=== PATIENT | female | born 1960 | race Caucasian/White ===

== ENCOUNTER → 2017-03-15 | Outpatient (CLI) | payer SELFPAY | END | disposition home or self-care (01) | LOC: LABPAT 09:58 | PROVIDERS: ATTEND Surgery | DX: Z01.818 Encounter for other preprocedural examination (principal); Z01.812 Encounter for preprocedural laboratory examination | CPT/HCPCS: 36415; 84132; 93005 ==

== ENCOUNTER 2020-10-01 09:17 | Emergency (ER) | payer MEDICAID ==
[2020-10-01 09:23] VITALS: BP 130/64; PULSE 71; RESP 18; TEMP 98.2
--- NOTE | 2020-10-01 09:49 | ED ---
Lower Extremity Injury HPI - General Chief Complaint: Extremity Injury, Lower Stated Complaint: Recheck/Abnormal Lab Time Seen by Provider: 10/01/20 09:26 Source: patient, RN notes reviewed Mode of arrival: ambulatory Limitations: no limitations - History of Present Illness Initial Comments: 59-year-old female presents emergency from chief complaint left leg pain and swelling. Patient was sent by PCP Dr. Bradshaw for rule out DVT. They attempted to outpatient ultrasound but was unable to get insurance approval. Patient states that she has no history DVT no history of PE no short breath or chest pain. She did have a fall 3 weeks ago though she states the bruising and swelling from that. She states her legs are always swollen but she still has some soreness to her left leg. - Related Data Home Medications Medication Instructions Recorded Confirmed Calcium Carbonate [Tums] 1 - 3 tab PO TID PRN 03/14/17 03/14/17 Lisinopril-Hctz 20-12.5 mg 1 tab PO DAILY 03/14/17 03/14/17 [Zestoretic 20-12.5] Allergies Allergy/AdvReac Type Severity Reaction Status Date / Time bee venom protein (honey bee) Allergy Unknown Verified 10/01/20 09:23 Childhood Review of Systems ROS Statement: Those systems with pertinent positive or pertinent negative responses have been documented in the HPI. ROS Other: All systems not noted in ROS Statement are negative. Past Medical History Past Medical History: GERD/Reflux, Hypertension Additional Past Medical History / Comment(s): incision hernia,bowel obstructions,varicose veins,PVD left leg History of Any Multi-Drug Resistant Organisms: None Reported Past Surgical History: Section, Cholecystectomy, Hernia Repair Additional Past Surgical History / Comment(s): 3 hernia repairs Past Anesthesia/Blood Transfusion Reactions: No Reported Reaction, Motion Sickness Additional Past Anesthesia/Blood Transfusion Reaction / Comment(s): no hx blood transfusion Past Psychological History: No Psychological Hx Reported Smoking Status: Never smoker Past Alcohol Use History: None Reported Past Drug Use History: None Reported - Past Family History Mother Family Medical History: Deep Vein Thrombosis (DVT) Father Family Medical History: Cancer General Exam Limitations: no limitations General appearance: alert, in no apparent distress Head exam: Present: atraumatic, normocephalic, normal inspection Respiratory exam: Present: normal lung sounds bilaterally. Absent: respiratory distress, wheezes, rales, rhonchi, stridor Cardiovascular Exam: Present: regular rate, normal rhythm, normal heart sounds. Absent: systolic murmur, diastolic murmur, rubs, gallop, clicks Extremities exam: Present: other (Left leg pain with palpation, pulses equal bilaterally, bilateral leg swelling.) Course Vital Signs 10/01/20 09:18 Temperature 98.2 F Pulse Rate 71 Respiratory 18 Rate Blood Pressure 130/64 O2 Sat by Pulse 98 Oximetry Medical Decision Making - Medical Decision Making Ultrasound is negative for acute DVT. Patient discharged in stable condition return parameters were discussed. Disposition Clinical Impression: Left leg pain, Leg edema Disposition: HOME SELF-CARE Condition: Stable Instructions (If sedation given, give patient instructions): Leg Pain (ED) Additional Instructions: Please return to the Emergency Department if symptoms worsen or any other concerns. Is patient prescribed a controlled substance at d/c from ED?: No Referrals: Quentin Bradshaw MD [Primary Care Provider] - 1-2 days Time of Disposition: 10:10
--- NOTE | 2020-10-01 10:04 | US ---
EXAMINATION TYPE: US venous doppler duplex LE LT DATE OF EXAM: 10/01/2020 9:41 AM COMPARISON: NONE CLINICAL HISTORY: Left leg pain. swelling SIDE PERFORMED: Left TECHNIQUE: The lower extremity deep venous system is examined utilizing real time linear array sonog augusto with graded compression, doppler sonography and color-flow sonography. VESSELS IMAGED: Common Femoral Vein Deep Femoral Vein Greater Saphenous Vein * Femoral Vein Popliteal Vein Small Saphenous Vein * Proximal Calf Veins (* superficial vessels) Left Leg: Negative for DVT Grayscale, color doppler, spectral doppler imaging performed of the deep veins of the left lower extr emity. There is normal flow, compressibility, vascular waveforms. IMPRESSION: No ultrasound evidence for acute DVT in the left lower extremity.
== END 2020-10-01 10:49 | disposition home or self-care (01) ==
LOC: EC 09:17
DX: M79.605 Pain in left leg (principal); R60.0 Localized edema; I10 Essential (primary) hypertension; Z79.899 Other long term (current) drug therapy; Z91.030 Bee allergy status; W19.XXXA Unspecified fall, initial encounter; Y92.89 Other specified places as the place of occurrence of the external cause; Y99.0 Civilian activity done for income or pay
CPT/HCPCS: 99283

== ENCOUNTER → 2020-11-08 | Outpatient (CLI) | payer MEDICAID ==
--- NOTE | 2020-11-08 10:26 | US ---
EXAMINATION TYPE: US carotid duplex BILAT DATE OF EXAM: 11/08/2020 COMPARISON: NONE CLINICAL HISTORY: R09.89 [place] CAROTID BRUIT. EXAM MEASUREMENTS: RIGHT: Peak Systolic Velocity (PSV) cm/sec ----- Right CCA: 119.2 ----- Right ICA: 107.6 ----- Right ECA: 122.1 ICA/CCA ratio: 0.9 RIGHT: End Diastole cm/sec ----- Right CCA: 45.1 ----- Right ICA: 49.4 ----- Right ECA: 33.3 LEFT: Peak Systolic Velocity (PSV) cm/sec ----- Left CCA: 117.3 ----- Left ICA: 135.0 ----- Left ECA: 94.0 ICA/CCA ratio: 1.2 LEFT: End Diastole cm/sec ----- Left CCA: 41.3 ----- Left ICA: 62.3 ----- Left ECA: 22.8 VERTEBRALS (direction of flow): Right Vertebral: Antegrade Left Vertebral: Antegrade Rhythm: Normal Mild atherosclerotic changes. No calcified plaque. Tortuous left ICA Incidental finding of multiple bilateral thyroid nodules. IMPRESSION: 1. Mild narrowing of the left internal carotid artery estimated between 50 and 69%. Correlate with th e patient's symptoms. Criteria for Assigning % of Stenosis / Diameter reduction (Estimation based on the indirect measurements of the internal carotid artery velocities (ICA PSV). 1. Normal (no stenosis)=ICA PSV < 125 cm/s: ratio < 2.0: ICA EDV<40 cm/s. 2. Less than 50% stenosis=ICA PSV < 125 cm/s: ratio < 2.0: ICA EDV<40 cm/s. 3. 50 to 69% stenosis=ICA PSV of 125 to 230 cm/s: ration 2.0 ? 4.0: ICA EDV 40-100 cm/s. 4. Greater than 70% stenosis to near occlusion= ICA PSV > 230 cm/s: ratio > 4.0: ICA EDV > 100 cm/s. 5. Near occlusion= ICA PSV velocities may be low or undetectable: variable ratio and ICA EDV. 6. Total occlusion=unable to detect flow.
== END | disposition home or self-care (01) ==
LOC: RADUSWWP 09:42
PROVIDERS: ATTEND Family Medicine
DX: I65.22 Occlusion and stenosis of left carotid artery (principal)
CPT/HCPCS: 93880

== ENCOUNTER → 2022-01-24 | Outpatient (CLI) | payer MEDICAID ==
--- NOTE | 2022-01-24 09:31 | CT ---
EXAMINATION TYPE: CT abdomen pelvis wo con DATE OF EXAM: 01/24/2022 HISTORY: Ventral wall hernia. CT DLP: 1356.8 mGycm. Automated Exposure Control for Dose Reduction was Utilized. TECHNIQUE: CT scan of the abdomen and pelvis is performed with oral but without IV contrast. COMPARISON: NONE FINDINGS: Within the limitations of a non-contrast study, the following observations are made. LUNG BASES: No significant abnormality is appreciated. LIVER/GB: Cholecystectomy clips are present. Liver is diffusely low dense consistent with fatty infil tration. PANCREAS: No significant abnormality is seen. SPLEEN: No significant abnormality is seen. ADRENALS: No significant abnormality is seen. KIDNEYS: No renal stones or hydronephrosis is seen bilaterally. BOWEL: Moderate-sized hiatal hernia is seen. Contrast is present suggesting esophageal dysmotility or gastroesophageal reflux. Oral contrast reaches level of the proximal left colon. No suspicious small or large bowel dilatation. No obstruction at the hernia noted. GENITAL ORGANS: Lobulated contour to the uterus reflecting fibroid disease with a single small calcif ied fibroid is noted. LYMPH NODES: No greater than 1cm abdominal or pelvic lymph nodes are appreciated. OSSEOUS STRUCTURES: Bridging osteophytes in the thoracic spine are seen. Prominent facet arthropathy throughout the lumbar spine is seen. Moderate axial joint space loss in both hips. OTHER: There is vertical oriented scar along the midline of the anterior abdominal wall. There is luc tral wall hernia containing fat and small bowel loop with narrow neck measuring 1.3 cm axial image 55 . IMPRESSION: Confirmation of narrow neck ventral wall hernia containing fat and small bowel loops keiko g the vertical scar from prior surgery. No bowel obstruction.
== END | disposition home or self-care (01) ==
LOC: RADCTMAIN 07:10
PROVIDERS: ATTEND Surgery
DX: K43.9 Ventral hernia without obstruction or gangrene (principal)
CPT/HCPCS: 74176

== ENCOUNTER 2022-07-04 13:47 | Emergency (ER) | payer MEDICAID ==
[2022-07-04] MEDS ORDERED: MECLIZINE 12.5 MG TAB PO STA (14:05)
[2022-07-04] MEDS ORDERED: METOCLOPRAMIDE 10 MG TAB PO STA (14:05)
--- NOTE | 2022-07-04 14:08 | ED ---
General Adult HPI - General Chief complaint: Dizziness Stated complaint: dizziness Time Seen by Provider: 07/04/22 13:55 Source: patient, RN notes reviewed Mode of arrival: ambulatory Limitations: no limitations - History of Present Illness Initial comments: Patient is a pleasant 61-year-old female presenting to the emergency department with concerns with dizziness. Onset of symptoms was last 2-3 days. Symptoms are positional. Symptoms are very mild at this time. Patient does find certain positions, usually upright position make symptoms worse. Patient states when symptoms get very bad she gets mildly nauseated. No weakness. No confusion. No difficulty with ambulation. No speech problems. Patient did have a fall around 3 weeks ago and did strike her head however did not have any symptoms until just the past couple days - Related Data Home Medications Medication Instructions Recorded Confirmed Calcium Carbonate [Tums] 1 - 3 tab PO TID PRN 03/14/17 03/14/17 Lisinopril-Hctz 20-12.5 mg 1 tab PO DAILY 03/14/17 03/14/17 [Zestoretic 20-12.5] Previous Rx's Medication Instructions Recorded Meclizine [Antivert] 25 mg PO TID PRN #12 tab 07/04/22 Metoclopramide HCl [Reglan] 10 mg PO Q6HR PRN #15 tablet 07/04/22 Allergies Allergy/AdvReac Type Severity Reaction Status Date / Time bee venom protein (honey bee) Allergy Unknown Verified 07/04/22 13:49 Childhood Review of Systems ROS Statement: Those systems with pertinent positive or pertinent negative responses have been documented in the HPI. ROS Other: All systems not noted in ROS Statement are negative. Constitutional: Denies: fever Eyes: Denies: eye pain ENT: Denies: ear pain Respiratory: Denies: cough Cardiovascular: Denies: chest pain Neurological: Reports: as per HPI, vertigo. Denies: headache, weakness, numbness, paresthesias, confusion, abnormal gait Past Medical History Past Medical History: GERD/Reflux, Hypertension Additional Past Medical History / Comment(s): incision hernia,bowel obstructions,varicose veins,PVD left leg History of Any Multi-Drug Resistant Organisms: None Reported Past Surgical History: Section, Cholecystectomy, Hernia Repair Additional Past Surgical History / Comment(s): 3 hernia repairs Past Anesthesia/Blood Transfusion Reactions: No Reported Reaction, Motion Sickness Additional Past Anesthesia/Blood Transfusion Reaction / Comment(s): no hx blood transfusion Past Psychological History: No Psychological Hx Reported Smoking Status: Never smoker Past Alcohol Use History: None Reported Past Drug Use History: None Reported - Past Family History Mother Family Medical History: Deep Vein Thrombosis (DVT) Father Family Medical History: Cancer General Exam Limitations: no limitations General appearance: alert, in no apparent distress Head exam: Present: atraumatic, normocephalic Eye exam: Present: normal appearance, PERRL, EOMI ENT exam: Present: normal oropharynx, TM's normal bilaterally Neck exam: Present: normal inspection. Absent: tenderness Respiratory exam: Present: normal lung sounds bilaterally Cardiovascular Exam: Present: regular rate, normal rhythm GI/Abdominal exam: Present: soft. Absent: tenderness Extremities exam: Present: normal inspection, full ROM Neurological exam: Present: alert, oriented X3, CN II-XII intact. Absent: motor sensory deficit Expanded Neurological exam: Present: protecting the airway Speech: Present: fluid speech Cranial nerves: EOM's Intact: Normal, Facial Sensation: Normal Sensory exam: Upper Extremity Light Touch: Normal, Lower Extremity Light Touch: Normal Motor strength exam: RUE: 5, LUE: 5, RLE: 5, LLE: 5 Eye Response: (4) open spontaneously Motor Response: (6) obeys commands Verbal Response: (5) oriented Psychiatric exam: Present: normal affect, normal mood Skin exam: Present: normal color Course Vital Signs 07/04/22 13:49 Temperature 97.8 F Pulse Rate 77 Respiratory 18 Rate Blood Pressure 164/80 O2 Sat by Pulse 98 Oximetry Medical Decision Making - Medical Decision Making Was pt. sent in by a medical professional or institution (, PA, MODEL BUILDER, urgent care, hospital, or shelter...) When possible be specific @ -No Did you speak to anyone other than the patient for history (EMS, parent, family, police, friend...)? What history was obtained from this source @ -No Did you review nursing and triage notes (agree or disagree)? Why? @ -I reviewed and agree with nursing and triage notes Were old charts reviewed (outside hosp., previous admission, EMS record, old EKG, old radiological studies, urgent care reports/EKG's, shelter records)? Report findings @ -No old charts were reviewed Differential Diagnosis (chest pain, altered mental status, abdominal pain women, abdominal pain men, vaginal bleeding, weakness, fever, dyspnea, syncope, headache, dizziness, GI bleed, back pain, seizure, CVA, palpatations, mental health)? @ -Differential Dizziness: Benign paroxysmal positional Vertigo, Menieres disease, otitis media, acoustic neuroma, vertebrobasilar insufficiency, cerebellar stroke, encephalitis, hypovolemic, arrhythmia, coronary artery syndrome, anemia, this is not meant to be an all-inclusive list EKG interpreted by me (3pts min.). @ -As above X-rays interpreted by me (1pt min.). @ -None done CT interpreted by me (1pt min.). @ -Report is reviewed U/S interpreted by me (1pt. min.). @ -None done What testing was considered but not performed or refused? (CT, X-rays, U/S, labs)? Why? @ -None What meds were considered but not given or refused? Why? @ -None Did you discuss the management of the patient with other professionals (professionals i.e. , PA, MODEL BUILDER, lab, RT, psych nurse, social group worker, loom blower, teacher, civil preparedness training officer, telephonic case manager)? Give summary @ -No Was smoking cessation discussed for >3mins.? @ -No Was critical care preformed (if so, how long)? @ -No Were there social determinants of health that impacted care today? How? (Homelessness, low income, unemployed, alcoholism, drug addiction, transportation, low edu. Level, literacy, decrease access to med. care, nursing home, rehab)? @ -No Was there de-escalation of care discussed even if they declined (Discuss DNR or withdrawal of care, Hospice)? DNR status @ -No What co-morbidities impacted this encounter? (DM, HTN, Smoking, COPD, CAD, Cancer, CVA, ARF, Chemo, Hep., AIDS, mental health diagnosis, sleep apnea, morbid obesity)? @ -None Was patient admitted / discharged? Hospital course, mention meds given and route, prescriptions, significant lab abnormalities, going to OR and other pertinent info. @ -Patient reevaluated and symptom-free following medication. Patient is comfortable with discharge home. Patient updated on results and need for follow-up as well as to return if symptoms worsen. Undiagnosed new problem with uncertain prognosis? @ -No Drug Therapy requiring intensive monitoring for toxicity (Heparin, Nitro, Insulin, Cardizem)? @ -No Were any procedures done? @ -No Diagnosis/symptom? @ -Vertigo Acute, or Chronic, or Acute on Chronic? @ -Acute Uncomplicated (without systemic symptoms) or Complicated (systemic symptoms)? @ -default Side effects of treatment? @ -No Exacerbation, Progression, or Severe Exacerbation? @ -No Poses a threat to life or bodily function? How? (Chest pain, USA, PA, pneumonia, PE, COPD, DKA, ARF, appy, cholecystitis, CVA, Diverticulitis, Homicidal, Suicidal, threat to staff... and all critical care pts) @ -No Disposition Clinical Impression: Vertigo Disposition: HOME SELF-CARE Condition: Stable Instructions (If sedation given, give patient instructions): Dizziness (ED) Additional Instructions: Please do follow-up to primary care physician in the next couple days for recheck. Return for increased dizziness, weakness, confusion, speech problems, worsening symptoms or any other concerns. Prescriptions have been sent to pharmacy. [id number] Antivert as needed. Prescriptions: Meclizine [Antivert] 25 mg PO TID PRN #12 tab PRN Reason: dizziness Metoclopramide HCl [Reglan] 10 mg PO Q6HR PRN #15 tablet PRN Reason: Nausea Is patient prescribed a controlled substance at d/c from ED?: No Referrals: Quentin Bradshaw MD [Primary Care Provider] - 1-2 days Time of Disposition: 15:35
--- NOTE | 2022-07-04 14:38 | CT ---
EXAMINATION TYPE: CT brain wo con CT DLP: 1143.4 mGycm, Automated exposure control for dose reduction was used. DATE OF EXAM: 07/04/2022 2:20 PM COMPARISON: None. CLINICAL INDICATION:Female, 61 years old with history of vertigo, Dizziness x 3days TECHNIQUE: Brain: Axial CT images of the brain were obtained with coronal and sagittal reformats created and rev iewed. Contrast used: None. Oral contrast used: None. FINDINGS: Brain: Extra-axial spaces: No abnormal extra-axial fluid collections. Ventricular system: Within normal limits Cerebral parenchyma: No acute intraparenchymal hemorrhage or mass effect. The rockwell-white junction is well differentiated. Cerebellum: Unremarkable. Mass effect: No evidence of midline shift. Intracranial vasculature: unremarkable Soft tissues: Normal. Calvarium/osseous structures: No depressed skull fracture. Paranasal sinuses and mastoid air cells: Mild scattered paranasal sinus disease. Visualized orbits: Orbital contents are intact. IMPRESSION: No acute intracranial process.
[2022-07-04 15:43] VITALS: BP 150/72; PULSE 70; RESP 16; TEMP 97.7
== END 2022-07-04 15:43 | disposition home or self-care (01) ==
LOC: EC 13:47
DX: R42 Dizziness and giddiness (principal); I10 Essential (primary) hypertension; Z91.030 Bee allergy status; Z90.49 Acquired absence of other specified parts of digestive tract
CPT/HCPCS: 70450; 99284

== ENCOUNTER → 2022-07-11 | Outpatient (CLI) | payer MEDICAID ==
[2022-07-11 15:11] LABS: HCT 39.3 % (37.2-46.3); HGB 11.6 g/dL (12.0-15.0); MCH 22.1 pg (27.0-32.0); MCHC 29.5 g/dL (32.0-37.0); MCV 74.9 fL (80.0-97.0); Mean Platelet Volume 9.3 fL (9.5-12.2); NRBC Per 100 WBC 0 /100 WBCS (0.0-0.0); Platelet Count 334 X 10*3/uL (140-440); RBC 5.25 X 10*6/uL (4.10-5.20); RDW 17.2 % (11.5-14.5); WBC 7.04 X 10*3/uL (4.50-10.00)
[2022-07-11 16:08] LABS: ALT 27 U/L (8-44); AST 22 U/L (13-35); African American GFR (CKD) 109.1 (60.0-200.0); Albumin 4.1 g/dL (3.8-4.9); Albumin/Globulin Ratio 1.86 (1.60-3.17); Alkaline Phosphatase 115 U/L (41-126); BUN/Creat Ratio 27.86 Ratio (12.00-20.00); Blood Urea Nitrogen 19.5 mg/dL (9.0-27.0); Carbon Dioxide 26.8 mmol/L (20.0-27.5); Chloride 102 mmol/L (96-109); Chol/HDL Ratio 3.76 Ratio; Ferritin 15.5 ng/mL (10.0-291.0); Globulin 2.2 g/dL (1.6-3.3); Glucose 95 mg/dL (70-110); Iron 41 ug/dL (50-170); LDL Cholesterol,Calculated 71.9 mg/dL (0.0-131.0); Non-African American GFR(CKD) 94.2 (60.0-200.0); Potassium 4.1 mmol/L (3.5-5.5); Sodium 142 mmol/L (135-145); Total Iron Binding Capacity 487 ug/dL (228-460); Total Protein 6.3 g/dL (6.2-8.2)
[2022-07-11 17:09] LABS: Basophils # (A) 0.04 X 10*3/uL (0.00-0.10); Basophils % (A) 0.6 %; Eosinophils # (A) 0 X 10*3/uL (0.04-0.35); Eosinophils % (A) 0 %; Immature Grans, Automated 0.1 %; Lymphocytes % (A) 18.5 %; Monocytes # (A) 0.44 X 10*3/uL (0.20-1.00); Monocytes % (A) 6.3 %; Neutrophils # (A) 5.25 X 10*3/uL (1.80-7.70); Neutrophils % (A) 74.5 %
== END | disposition home or self-care (01) ==
LOC: LABWHC1 09:58
PROVIDERS: ATTEND Family Medicine
DX: I10 Essential (primary) hypertension (principal); E55.9 Vitamin D deficiency, unspecified; D64.9 Anemia, unspecified
CPT/HCPCS: 36415; 80053; 80061; 82306; 82728; 83540; 83550; 84443; 85025

== ENCOUNTER → 2022-07-19 | Outpatient (CLI) | payer MEDICAID ==
--- NOTE | 2022-07-19 09:01 | XR ---
EXAMINATION TYPE: XR knee complete bilateral DATE OF EXAM: 07/19/2022 8:22 AM INDICATION: Patient age:Female; 61 years old; Reason for study: Z12.2,M25.561,M25.562; [facility]. COMPARISON: None. TECHNIQUE: Both knees are examined in AP, lateral, and oblique projections. FINDINGS: No acute fracture or dislocation. Tricompartmental bilateral joint space narrowing with end plate sclerosis and marginal spurring. This is most prominent involving the bilateral lateral tibiofe moral joint spaces and bilateral patellofemoral joint bases. Soft tissue calcifications within the po sterior bilateral knees. No soft tissue edema or joint effusion is identified bilaterally. IMPRESSION: 1. No acute osseous pathology. 2. Moderate bilateral tricompartmental osteoarthritic changes.
--- NOTE | 2022-07-19 10:30 | CTL ---
EXAMINATION TYPE: CT Low Dose Lung DATE OF EXAM ORDERED: 07/19/2022 HISTORY: Long-term tobacco use. Lung cancer screening CT DLP: 124.[address] CTDI: 4.00 mGy Automated exposure control for dose reduction was used. SCREENING VISIT: Baseline COMPARISON: None TECHNIQUE: Low dose computed tomography scan was performed through the chest at 1 mm thick sections a nd reconstructed images in multiple planes at 1 mm and [address] DIAGNOSTIC QUALITY: Satisfactory FINDINGS: LUNG NODULES: None. A few scattered small nodules are present. For reference, There is 4 mm peripheral right upper lobe nodule axial image 124. For reference there is 5 mm periphe ral left lower lobe nodule axial image 129. No greater than 6 mm noncalcified pulmonary nodules are p resent. LUNGS: COPD: Severity: None Fibrosis: Severity: None Lymph nodes: None Other findings: None RIGHT PLEURAL SPACE: Effusion: None Calcification: None Thickening: None Pneumothorax: None LEFT PLEURAL SPACE: Effusion: None Calcification: None Thickening: None Pneumothorax: None HEART: Heart Size: Normal Coronary Calcification: Moderate three-vessel Pericardial Effusion: None OTHER FINDINGS: Upper abdomen: Moderate to large size hiatal hernia. Some linear calcifications along the left margin of the spleen. Visualized liver is heterogeneously hypodense consistent with diffuse fatty infiltrat ion. Bony thorax: None Supraclavicular region: None Other: None IMPRESSION: A few scattered small nodules. No greater than [address] LUNG RAD AND CT CHEST RECOMMENDATION: Lung-Rad 2 Benign Appearance or Behavior: Continue annual sc reening with LDCT in 12 months. S Modifier (other clinically significant findings): None
[2022-07-19 16:13] LABS: % Iron Saturation 52.81 (12.00-45.00)
[2022-07-19 19:40] LABS: Basophils # (A) 0.05 X 10*3/uL (0.00-0.10); Basophils % (A) 0.8 %; Eosinophils # (A) 0.12 X 10*3/uL (0.04-0.35); Eosinophils % (A) 1.8 %; HCT 39.6 % (37.2-46.3); HGB 11.4 d/dL (12.0-15.0); Lymphocytes # (A) 1.26 X 10*3/uL (0.90-5.00); Lymphocytes % (A) 19.1 %; MCH 21.9 pg (27.0-32.0); MCHC 28.8 d/dL (32.0-37.0); MCV 76.2 FL (80.0-97.0); Mean Platelet Volume 9.1 FL (9.5-12.2); Monocytes # (A) 0.45 X 10*3/uL (0.20-1.00); Monocytes % (A) 6.8 %; NRBC Per 100 WBC 0 X 10*3/uL (0.00-0.01); Platelet Count 315 X 10*3/uL (140-440); RDW 18.2 % (11.5-14.5); WBC 6.61 X 10*3/uL (4.50-10.00)
== END | disposition home or self-care (01) ==
LOC: RADCTMAIN 07:54
PROVIDERS: ATTEND Family Medicine
DX: Z12.2 Encounter for screening for malignant neoplasm of respiratory organs (principal); F17.200 Nicotine dependence, unspecified, uncomplicated; M17.0 Bilateral primary osteoarthritis of knee; R91.8 Other nonspecific abnormal finding of lung field; M25.561 Pain in right knee; M25.562 Pain in left knee; E61.1 Iron deficiency
CPT/HCPCS: 71271; 83540; 83550; 85025

== ENCOUNTER → 2022-08-02 | Outpatient (CLI) | payer MEDICAID ==
--- NOTE | 2022-08-02 15:01 | US ---
EXAMINATION TYPE: US carotid duplex BILAT DATE OF EXAM: 08/02/2022 COMPARISON: 11-02 US CLINICAL INDICATION: Female, 61 years old with history of R42. DIZZINESS; TECHNIQUE: Carotid duplex ultrasound examination. Indirect Doppler criteria was utilized. FINDINGS: EXAM MEASUREMENTS: RIGHT: Peak Systolic Velocity (PSV) cm/sec ----- Right CCA: 83.1 ----- Right ICA: 97.8 ----- Right ECA: 95.1 ICA/CCA ratio: 1.2 RIGHT: End Diastole cm/sec ----- Right CCA: 32.8 ----- Right ICA: 43.5 ----- Right ECA: 20.1 LEFT: Peak Systolic Velocity (PSV) cm/sec ----- Left CCA: 114 ----- Left ICA: 117 ----- Left ECA: 77.9 ICA/CCA ratio: 1.0 LEFT: End Diastole cm/sec ----- Left CCA: 44.5 ----- Left ICA: 46.9 ----- Left ECA: 8.3 VERTEBRALS (direction of flow): Right Vertebral: Antegrade Left Vertebral: Antegrade Rhythm: Normal EYEGLASS LENS GENERATOR NOTES: Minimal changes noted, curvy vessels. No significant stenosis seen. Bilateral thyroid nodules noted in real time. IMPRESSION: Atheromatous plaquing without significant flow-limiting stenosis. Criteria for Assigning % of Stenosis / Diameter reduction (Estimation based on the indirect measurements of the internal carotid artery velocities (ICA PSV). 1. Normal (no stenosis)=ICA PSV < 125 cm/s: ratio < 2.0: ICA EDV<40 cm/s. 2. Less than 50% stenosis=ICA PSV < 125 cm/s: ratio < 2.0: ICA EDV<40 cm/s. 3. 50 to 69% stenosis=ICA PSV of 125 to 230 cm/s: ration 2.0 ? 4.0: ICA EDV 40-100 cm/s. 4. Greater than 70% stenosis to near occlusion= ICA PSV > 230 cm/s: ratio > 4.0: ICA EDV > 100 cm/s. 5. Near occlusion= ICA PSV velocities may be low or undetectable: variable ratio and ICA EDV. 6. Total occlusion=unable to detect flow.
--- NOTE | 2022-08-02 15:24 | BD ---
EXAMINATION TYPE: Axial Bone Density DATE OF EXAM: 08/02/2022 CLINICAL HISTORY: 61 years old Female. ICD-10 CODE: N95.1 MENOPAUSAL AND FEMALE CLIMACTERIC STATES Height: 63.5 Weight: 263 FRAX RISK QUESTIONS: Family History (Parent hip fracture): no History of Fracture in Adulthood: no Secondary Osteoporosis: no RISK FACTORS HISTORY OF: Family History of Osteoporosis: no Active: yes Diet low in dairy products/other sources of calcium: yes Postmenopausal woman: yes Lost more than 2 inches in height since high school: yes, was 68 Frequent falls: no Poor Health: no MEDICATIONS: Additional Medications: yes HBP meds, reflux meds, iron pill, cholesterol EXAM MEASUREMENTS: Bone mineral densitometry was performed using the Kiddy System. Bone mineral density as measured about the Lumbar spine is: ----- L1-L4(G/cm2): 1.282 T Score Values are as follows: ----- L1: 0.5 ----- L2: 0.1 ----- L3: 0.3 ----- L4: 2.1 ----- L1-L4: 0.8 Z Score Values are as follows: ----- L1: 0.6 ----- L2: 0.2 ----- L3: 0.4 ----- L4: 2.1 ----- L1-L4: 0.9 Bone mineral density baseline Bone mineral density about the R hip (g/cm2): 0.812 Bone mineral density about the L hip (g/cm2): 0.808 T Score values are as follows: -----R Neck: -1.6 -----L Neck: -2.1 -----R Total: -1.6 -----L Total: -1.6 Z Score values are as follows: -----R Neck: -1.1 -----L Neck: -1.6 -----R Total: -1.4 -----L Total: -1.5 Bone mineral density baseline FRAX%s: The graph provided illustrates a 8.4% chance for a major osteoporotic fx and a 1.0% chance fo r the hips probability for fx in 10 years time. IMPRESSION: Osteopenia (T Score between -2.5 and -1). There is slightly increased risk of fracture and the patient may be considered for treatment. Re-Screen 2-5 years. NOTE: T-SCORE=SD OF THE YOUNG ADULT MEAN.
--- NOTE | 2022-08-03 20:30 | MM ---
Reason for Exam: Screening (asymptomatic). Last mammogram was performed 1 year(s) and 11 month(s) ago. Patient History: Menarche at age 17. First Full-Term at age 25. Postmenopausal. Risk Values: Pamela 5 year model risk: 1.2%. NCI Lifetime model risk: 6.0%. Prior Study Comparison: 09/06/2020 Bilateral Screening Mammogram, [facility]. Tissue Density: The breast tissue is almost entirely fat. Findings: Analyzed By CAD. Unchanged subareolar nodularity on the left. There is no suspicious group of microcalcifications or new suspicious mass in either breast. Overall Assessment: Benign, BI-RAD 2 Management: Screening Mammogram of both breasts in 1 year. . Patient should continue monthly self-breast exams. A clinical breast exam by your physician is recommended on an annual basis. This exam should not preclude additional follow-up of suspicious palpable abnormalities. Note on Pamela scores and lifetime risk: 1. A Pamela score greater than 3% is considered moderate risk. If this is the case, consider specialist referral to assess eligibility for a risk reducing agent. 2. If overall lifetime risk for the development of breast cancer is 20% or higher, the patient may qualify for future screening with alternating mammogram and breast MRI. Electronically signed and approved by: Reina Fajardo M.D. Radiologist
== END | disposition home or self-care (01) ==
LOC: RADMAMWWP 09:18
PROVIDERS: ATTEND Family Medicine
DX: Z12.31 Encounter for screening mammogram for malignant neoplasm of breast (principal); I65.23 Occlusion and stenosis of bilateral carotid arteries; M85.89 Other specified disorders of bone density and structure, multiple sites; Z78.0 Asymptomatic menopausal state
CPT/HCPCS: 77063; 77067; 77080; 93880

== ENCOUNTER → 2022-09-26 | Outpatient (CLI) | payer MEDICAID ==
[2022-09-26 15:02] LABS: % Iron Saturation 26.82 (12.00-45.00)
[2022-09-26 15:48] LABS: Basophils # (A) 0.06 X 10*3/uL (0.00-0.10); Basophils % (A) 0.9 %; Eosinophils % (A) 1.4 %; HCT 46.5 % (37.2-46.3); HGB 14.4 d/dL (12.0-15.0); Lymphocytes # (A) 1.14 X 10*3/uL (0.90-5.00); Lymphocytes % (A) 16.2 %; MCH 25.9 pg (27.0-32.0); MCV 83.8 FL (80.0-97.0); Mean Platelet Volume 9.9 FL (9.5-12.2); Monocytes # (A) 0.58 X 10*3/uL (0.20-1.00); Monocytes % (A) 8.3 %; NRBC Per 100 WBC 0 X 10*3/uL (0.00-0.01); Neutrophils # (A) 5.13 X 10*3/uL (1.80-7.70); Neutrophils % (A) 73.1 %; Platelet Count 143 X 10*3/uL (140-440); RBC 5.55 X 10*6/uL (4.10-5.20); RBC Morphology Normal (Normal); RDW 19.3 % (11.5-14.5); WBC 7.02 X 10*3/uL (4.50-10.00)
== END | disposition home or self-care (01) ==
LOC: LABWHC1 09:19
PROVIDERS: ATTEND Family Medicine
DX: E61.1 Iron deficiency (principal)
CPT/HCPCS: 36415; 83540; 83550; 85025

== ENCOUNTER → 2023-10-29 | Outpatient (CLI) | payer OTHER ==
--- NOTE | 2023-11-01 10:37 | CTL ---
EXAMINATION TYPE: CT Low Dose Lung DATE OF EXAM ORDERED: 10/29/2023 HISTORY: Lung nodules, nicotine dependence. Lung cancer screening CT DLP: 87.[address] CTDI: 2.4 mGy Automated exposure control for dose reduction was used. SCREENING VISIT: Subsequent COMPARISON: 07/19/2022 TECHNIQUE: Low dose computed tomography scan was performed through the chest at 1 mm thick sections a nd reconstructed images in the coronal plane at [address] DIAGNOSTIC QUALITY: Satisfactory FINDINGS: LUNG NODULES: Present, detailed below: 1. There is a 0.5 cm nodule in the periphery of the posterior lateral right mid lung. Series 4 image 106. 2. There is a 0.5 cm peripheral nodule right middle lobe. Series 4 image 129. 3. There is a small 0.6 pleural-based density in the posterior lateral right lung. Series 4 image 152 . #4 there is a 0.4 cm nodule posterior lateral right lung. Series 4 image 120. LUNGS: COPD: Severity: None Fibrosis: Severity: None Lymph nodes: None Other findings: None RIGHT PLEURAL SPACE: Effusion: None Calcification: None Thickening: None Pneumothorax: None LEFT PLEURAL SPACE: Effusion: None Calcification: None Thickening: None Pneumothorax: None HEART: Other: Ascending thoracic aorta at the level the main pulmonary artery measures 3.1 cm. The main pul monary artery at the bifurcation measures 2.3 cm. Heart Size: Normal Coronary calcification: Mild Pericardial effusion: None OTHER FINDINGS: Upper abdomen: There is a large hiatal hernia. Bony thorax: Normal Supraclavicular region: Normal IMPRESSION: 1. Multiple stable appearing nodules right lung. 2. No new or enlarging nodules. 3. Large hiatal hernia FOLLOW UP CT CHEST RECOMMENDATION: Follow-up low-dose CT chest one year CT LUNG RAD: Lung-Rad 2 Benign Appearance or Behavior [facility], , 11/01/2023 10:35 AM
== END | disposition home or self-care (01) ==
LOC: RADCTMAIN 09:08
PROVIDERS: ATTEND Family Medicine
DX: Z12.2 Encounter for screening for malignant neoplasm of respiratory organs
CPT/HCPCS: 71271